=== PATIENT | male | born 2005 | race Caucasian/White ===

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

== ENCOUNTER 2024-03-15 21:55 | Emergency (ER) | payer OTHER, SELFPAY ==
[2024-03-15 22:17] VITALS: BP 133/63; PULSE 89; RESP 16; TEMP 36.6; O2SAT 95; BMI 35.1
--- NOTE | 2024-03-16 15:49 | ED.EPISTAXIS ---
HPI - Epistaxis General Chief complaint: Nasal Problem Stated complaint: nose bleed since 8am Source: patient Mode of arrival: Ambulatory History of Present Illness HPI Narrative: Patient left without seeing any provider Related Data Previous Rx's Medication Instructions Recorded dextroamphetamine-amphetamine 20 20 mg PO DAILY PRN ADHD #30 tabs 01/28/24 mg tablet (Adderall) escitalopram oxalate 10 mg tablet 10 mg PO DAILY #90 tabs 01/28/24 (Lexapro) Allergies Allergy/AdvReac Type Severity Reaction Status Date / Time No Known Drug Allergies Allergy Verified 03/08/23 13:47 Patient History Medical History (Updated 03/15/24 @ 22:25 by Sophie Yeager RN) Anxiety ADHD Social History Smoking Status: Never smoker second hand exposure: No alcohol intake: never substance use type: does not use Smoking Status: Never smoker Substance Use Type: does not use Exam Initial Vital Signs Initial Vital Signs: Vital Signs Temperature 97.9 F 03/15/24 22:17 Pulse Rate 89 03/15/24 22:17 Respiratory Rate 16 03/15/24 22:17 Blood Pressure 133/63 03/15/24 22:17 Pulse Oximetry 95 03/15/24 22:17 Oxygen Delivery Method Room Air 03/15/24 22:17 Discharge Plan Departure Patient Disposition: Left Without Being Seen Clinical Impression: Patient left without being seen Prescriptions: No Action escitalopram oxalate [Lexapro] 10 mg tablet 10 mg PO DAILY Qty: 90 3RF dextroamphetamine-amphetamine [Adderall] 20 mg tablet 20 mg PO DAILY PRN (Reason: ADHD) Qty: 30 0RF Rx Instructions: Use before 3 pm
== END 2024-03-15 22:25 | disposition left against medical advice (07) ==
PROVIDERS: Emergency Provider Emergency Medicine; PCP Family Medicine
DX: R04.0 Epistaxis (principal)
CPT/HCPCS: 99281